=== PATIENT | female | born 2000 | race Caucasian/White ===

== ENCOUNTER → 2022-07-20 | Outpatient (CLI) | payer SELFPAY ==
--- NOTE | 2022-07-20 14:30 | BRBX_PTH ---
PATIENT: PURNIMA TOLENTINO LOC: [facility] U#:[id number] AGE/SX: 22 ROOM: RE07/20/[address]: Dr. 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 Negative for atypia or malignancy. See comment. SJ:chiquis 07/22/2022 COMMENT Correlation with clinical, radiologic findings and appropriate follow up are necessary. MICROSCOPIC DESCRIPTION Slides are reviewed. GROSS DESCRIPTION Received in fixative is one container labeled with the patient's name and designated right breast mass biopsy. The specimen consists of multiple elongated fragments of styles tissue that in aggregate measure 1.8 x 0.7 x 0.1 cm. The specimen is totally submitted in one cassette. / AM:chiquis 07/21/2022 TC:1 CPT: 52083
== END | disposition home or self-care (01) ==
LOC: LABSPEC 16:03
PROVIDERS: PCP Midwife; Referring Provider Surgery; Visit Provider Surgery
DX: D24.1 Benign neoplasm of right breast (principal)
CPT/HCPCS: 88305